=== PATIENT | male | born 1955 | race Caucasian/White ===

== ENCOUNTER → 2016-07-23 | Outpatient (CLI) | payer OTHER ==
[2014-08-24] VITALS: BP 137/73
[~2016-07-23] MED LIST: LISI10TA2 PO; METH-38 PO; MULT-208 PO; NAPR220C4 PO; TIZA4CAP3 PO; TRAM50TA PO; VITA1CAP PO; relafen
--- NOTE | 2016-07-23 08:41 | RAD ---
Abdominal ultrasound, 07/23/2016: History: Abdominal pain The gallbladder is within normal limits in size. There is no sonographic evidence of cholelithiasis. The gallbladder wall is not thickened. No bile duct dilatation is seen. There is no evidence of a hepatic mass. The visualized portions of the pancreas are unremarkable. The spleen is of normal size. No renal abnormality is detected. The abdominal aorta is of normal size. The inferior vena cava is unremarkable. No free fluid is evident in the abdomen. IMPRESSION: No significant abnormality is detected.
== END | disposition home or self-care (01) ==
LOC: US 07:45
PROVIDERS: ATTEND Family Medicine
DX: R10.9 Unspecified abdominal pain (principal)
CPT/HCPCS: 76700

== ENCOUNTER 2017-06-08 16:51 | Inpatient (IN) | payer OTHER ==
[~2017-06-08] VITALS: Ht 177.8 cm; Wt 64.4 kg
[2017-06-08] MEDS ORDERED: diazePAM 5 MG TABLET PO ONE (17:45)
[2017-06-08] MEDS ORDERED: MORPHINE SULFATE 10 MG/ML VIAL. IV ONE (17:45)
[2017-06-08] MEDS ORDERED: DEXAMETHASONE SOD PHOS 20 MG/5 ML VIAL. IV ONE (17:45)
[2017-06-08] MEDS ORDERED: KETOROLAC 30 MG/ML INJ. IV ONE (17:45)
[2017-06-08 17:48] LABS: BASO % 1 % (0-3); EOS % 1 % (0-3); HEMATOCRIT 41.4 % (39.0-53.0); LYMPH # 1.2 x10^3/uL (1.0-4.8); LYMPH % 14 % (24-48); MEAN CORPUSCULAR HEMOGLOBIN 34 pg (25-35); MEAN CORPUSCULAR HGB CONC 34 g/dL (31-37); MEAN CORPUSCULAR VOLUME 101 fL (79-100); MONO % 6 % (0-9); NEUT % 79 % (31-73); PLATELET COUNT 264 x10^3/uL (140-400); RED BLOOD COUNT 4.08 x10^6/uL (4.30-5.70); RED CELL DISTRIBUTION WIDTH 13.7 % (11.5-14.5); WHITE BLOOD COUNT 8.7 x10^3/uL (4.0-11.0)
[2017-06-08 18:00] LABS: CALCIUM 8.8 mg/dL (8.5-10.1); CREATININE 0.9 mg/dL (0.7-1.3); GFR 86.1; POTASSIUM 4.2 mmol/L (3.5-5.1)
[2017-06-08 18:03] LABS: PROTHROMBIN TIME PATIENT 12.8 SEC (11.7-14.0)
[2017-06-08] MEDS ORDERED: diazePAM 5 MG TABLET PO PRN (18:15)
[2017-06-08] MEDS ORDERED: ONDANSETRON PF 4 MG/2 ML VIAL. IV PRN (18:15)
--- NOTE | 2017-06-08 18:31 | PHYS DOC ---
Past Medical History Past Medical History: Hypertension, Other Additional Past Medical Histor: pseudoarthritis, chronic back pain Past Surgical History: Other Alcohol Use: None Drug Use: None Adult General Chief Complaint Chief Complaint: BACK PAIN OR INJURY HPI HPI Patient is a 61 year old female who presents with moderate left low back pain radiating into the left lower extremity that began today. Patient states the pain is constant worse on weight-bearing on the left lower extremity. Patient denies any loss of bowel bladder function. Denies any numbness or tingling to the left lower extremity. He states he is currently not able to ambulate because if he tries to bear weight on the left lower extremity the pain is excruciating. Patient denies weakness to bilateral lower extremities. He states his had similar back pain before and they did an epidural which cleared the pain. He also states he has had another episode of similar pain and he took Medrol Dosepak which helped. He states this is the first time he has not been able to bear weight on that left lower extremity due to pain. Review of Systems Review of Systems Constitutional: Denies fever or chills [] Eyes: Denies change in visual acuity, redness, or eye pain [] HENT: Denies nasal congestion or sore throat [] Respiratory: Denies cough or shortness of breath [] Cardiovascular: No additional information not addressed in HPI [] GI: Denies abdominal pain, nausea, vomiting, bloody stools or diarrhea [] : Denies dysuria or hematuria [] Musculoskeletal: Left low back pain radiating into the left lower extremity Integument: Denies rash or skin lesions [] Neurologic: Denies headache, focal weakness or sensory changes [] All other systems were reviewed and found to be within normal limits, except as documented in this note. Current Medications Current Medications Current Medications Medications (Trade) Dose Ordered Sig/Immanuel Start Time Stop Time Status Last Admin Dose Admin Dexamethasone Sodium Phosphate (Decadron) 10 mg 1X ONCE 06/08/17 17:45 06/08/17 17:46 DC 06/08/17 18:08 10 MG Diazepam (Valium) 5 mg 1X ONCE 06/08/17 17:45 06/08/17 17:46 DC 06/08/17 18:11 5 MG Ketorolac Tromethamine (Toradol) 30 mg 1X ONCE 06/08/17 17:45 06/08/17 17:46 DC 06/08/17 18:10 30 MG Morphine Sulfate 5 mg 1X ONCE 06/08/17 17:45 06/08/17 17:46 DC 06/08/17 18:11 5 MG Allergies Allergies Allergies Coded Allergies Type Severity Reaction Last Updated Verified No Known Drug Allergies 08/23/14 No Physical Exam Physical Exam Constitutional: Well developed, well nourished, no acute distress, non-toxic appearance. [] HENT: Normocephalic, atraumatic, bilateral external ears normal, oropharynx moist, no oral exudates, nose normal. [] Eyes: PERRLA, EOMI, conjunctiva normal, no discharge. [] Neck: Normal range of motion, no tenderness, supple, no stridor. [] Cardiovascular:Heart rate regular rhythm, no murmur [] Lungs & Thorax: Bilateral breath sounds clear to auscultation [] Abdomen: Bowel sounds normal, soft, no tenderness, no masses, no pulsatile masses. [] Skin: Warm, dry, no erythema, no rash. [] Back: Diffuse paraspinal muscle tenderness to the left lumbar spine worse on the left SI joint, no midline lumbar spine tenderness, no CVA tenderness. Positive left leg straight raises.5/5 strength bilateral upper and lower extremities. Rectal tone is normal. Extremities: No tenderness, no cyanosis, no clubbing, ROM intact, no edema. [] Neurologic: Alert and oriented X 3, normal motor function, normal sensory function, no focal deficits noted. [] Psychologic: Affect normal, judgement normal, mood normal. [] Current Patient Data Vital Signs Vital Signs Date Time Temp Pulse Resp B/P (MAP) Pulse Ox O2 Delivery O2 Flow Rate FiO2 06/08/17 17:05 98.0 55 20 97 Room Air 98.0 Lab Values Laboratory Tests Test 06/08/17 17:40 White Blood Count 8.7 x10^3/uL (4.0-11.0) Red Blood Count 4.08 x10^6/uL (4.30-5.70) L Hemoglobin 14.0 g/dL (13.0-17.5) Hematocrit 41.4 % (39.0-53.0) Mean Corpuscular Volume 101 fL (79-100) H Mean Corpuscular Hemoglobin 34 pg (25-35) Mean Corpuscular Hemoglobin Concent 34 g/dL (31-37) Red Cell Distribution Width 13.7 % (11.5-14.5) Platelet Count 264 x10^3/uL (140-400) Neutrophils (%) (Auto) 79 % (31-73) H Lymphocytes (%) (Auto) 14 % (24-48) L Monocytes (%) (Auto) 6 % (0-9) Eosinophils (%) (Auto) 1 % (0-3) Basophils (%) (Auto) 1 % (0-3) Neutrophils # (Auto) 6.9 x10^3uL (1.8-7.7) Lymphocytes # (Auto) 1.2 x10^3/uL (1.0-4.8) Monocytes # (Auto) 0.5 x10^3/uL (0.0-1.1) Eosinophils # (Auto) 0.1 x10^3/uL (0.0-0.7) Basophils # (Auto) 0.0 x10^3/uL (0.0-0.2) Prothrombin Time 12.8 SEC (11.7-14.0) Prothrombin Time INR 1.0 (0.8-1.1) PTT 26 SEC (24-38) Sodium Level 135 mmol/L (136-145) L Potassium Level 4.2 mmol/L (3.5-5.1) Chloride Level 98 mmol/L (98-107) Carbon Dioxide Level 29 mmol/L (21-32) Anion Gap 8 (6-14) Blood Urea Nitrogen 10 mg/dL (8-26) Creatinine 0.9 mg/dL (0.7-1.3) Estimated GFR (Cockcroft-Gault) 86.1 Glucose Level 96 mg/dL (70-99) Calcium Level 8.8 mg/dL (8.5-10.1) Laboratory Tests 06/08/17 17:40 Laboratory Tests 06/08/17 17:40 EKG EKG [] Radiology/Procedures Radiology/Procedures [] Course & Med Decision Making Course & Med Decision Making Pertinent Labs and Imaging studies reviewed. (See chart for details) Patient is in the ED with complaints of moderate left low back pain radiating to the left lower extremity. He currently is not able to bear weight on the left lower extremity due to the pain. Patient denies any injury. He does not have weakness to bilateral upper and lower extremities. His rectal tone is normal. He has been given Toradol and Decadron morphine and Valium. He feels better. He is turning in bed with no difficulties. The states there is no way she can take care of patient at home. Patient is requesting to be admitted. MRI ordered for AM 17:[address] Benedict who accepted patient for admission. Routine consult placed for neurosurgery. Dragon Disclaimer Dragon Disclaimer This electronic medical record was generated, in whole or in part, using a voice recognition dictation system. Departure Departure Impression: Primary Impression: Intractable low back pain Disposition: ADMITTED INPATIENT Admitting Physician: Luh Benedict Condition: STABLE Referrals: UNKNOWN PCP NAME (PCP) LYNN HUI APRN Jun 08, 2017 18:31
--- NOTE | 2017-06-08 18:40 | HP ---
ADMIT DATE: 06/08/2017 CHIEF COMPLAINT: Back pain. HISTORY OF PRESENT ILLNESS: The patient is a pleasant 61-year-old male who has a long history of back pain and lumbar radiculopathy. He has never had surgery yet, but he follows with a doctor who treated him for his chronic back pain. Today's pain rated as 10/10. He has associated spasms and weakness. I have discussed the case with the ER physician. We are going to admit the patient and consult Neurosurgery. PAST MEDICAL HISTORY: Arrhythmias, hypertension. ALLERGIES: None. FAMILY HISTORY: Diabetes. SOCIAL HISTORY: He does not drink, smoke or take drugs. He works at [employer]. He drives a forklift. He is . MEDICATIONS: Reviewed. REVIEW OF SYSTEMS: GENERAL: No history of weight change, weakness or fevers. SKIN: No bruising, hair changes or rashes. EYES: No blurred, double or loss of vision. NOSE AND THROAT: No history of nosebleeds, hoarseness or sore throat. HEART: No history of palpitations, chest pain or shortness of breath on exertion. LUNGS: Denies cough, hemoptysis, wheezing or shortness of breath. GASTROINTESTINAL: Denies changes in appetite, nausea, vomiting, diarrhea or constipation. GENITOURINARY: No history of frequency, urgency, hesitancy or nocturia. NEUROLOGIC: He complains of back pain. PSYCHIATRIC: No history of panic, anxiety or depression. ENDOCRINE: No history of heat or cold intolerance, polyuria or polydipsia. EXTREMITIES: Denies muscle weakness, joint pain, pain on walking or stiffness. PHYSICAL EXAMINATION: VITAL SIGNS: Temperature afebrile, pulse 74, respirations 18, blood pressure 144/60. GENERAL: He is alert, cooperative. His is present. HEART: Normal S1, S2. LUNGS: Clear. GASTROINTESTINAL: Soft. EXTREMITIES: No edema. SKIN: No rashes. ENDOCRINE: No thyromegaly. LYMPHATICS: No cervical nodes. HEMATOPOIETIC: No bruising. ASSESSMENT AND PLAN: Acute on chronic radicular back pain with intractable pain. The patient has been admitted. We will consult Neurosurgery. IV fluids, IV narcotics. Continue home medicines, PT, OT. Suspect will need an MRI or myelogram. We will await neurosurgical input. TERRANCE GTZ DO DR: Xiomara JOB#: [id number] / [id number]
[2017-06-08 19:00] VITALS: BP 125/66
[2017-06-08] MEDS ORDERED: DEXAMETHASONE SOD PHOS 20 MG/5 ML VIAL. IV SCH (21:00)
[2017-06-08] MEDS ORDERED: METO25TA4 PO (21:45)
[2017-06-08] MEDS ORDERED: LISI-334 PO (21:45)
[2017-06-08] MEDS ORDERED: FLEC100T PO (21:45)
[2017-06-08] MEDS ORDERED: DEXAMETHASONE SOD PHOS 4 MG/ML VIAL IV SCH (21:56)
[2017-06-08] MEDS: MORPHINE SULFATE 4 MG/ML DISP.SYRIN. IV PRN (22:06)
[2017-06-08] MEDS: DEXAMETHASONE SOD PHOS 4 MG/ML VIAL IV SCH (22:06)
[2017-06-08 23:00] VITALS: BP 124/65
[2017-06-09 02:38] VITALS: BP 135/77
[2017-06-09] MEDS: MORPHINE SULFATE 4 MG/ML DISP.SYRIN. IV PRN (03:21)
[2017-06-09 03:43] LABS: BASO % 0 % (0-3); EOS % 0 % (0-3); HEMATOCRIT 41.7 % (39.0-53.0); LYMPH # 0.4 x10^3/uL (1.0-4.8); LYMPH % 6 % (24-48); MEAN CORPUSCULAR HEMOGLOBIN 34 pg (25-35); MEAN CORPUSCULAR HGB CONC 34 g/dL (31-37); MEAN CORPUSCULAR VOLUME 103 fL (79-100); MONO % 1 % (0-9); NEUT % 93 % (31-73); PLATELET COUNT 254 x10^3/uL (140-400); RED BLOOD COUNT 4.07 x10^6/uL (4.30-5.70); RED CELL DISTRIBUTION WIDTH 13.6 % (11.5-14.5)
[2017-06-09 04:09] LABS: CALCIUM 8.8 mg/dL (8.5-10.1); CREATININE 0.9 mg/dL (0.7-1.3); GFR 86.1; POTASSIUM 5.1 mmol/L (3.5-5.1)
[2017-06-09 07:00] VITALS: BP 136/68
[2017-06-09 07:38] LABS: PLT ESTIMATE ADEQUATE (ADEQUATE)
--- NOTE | 2017-06-09 08:14 | RAD ---
Lumbar spine, 3 views, 06/08/2017: History: Pain The lumbar vertebral heights are well-maintained. There is a mild lumbar scoliosis. There is moderate disc space narrowing and marginal spurring at L4-5. There are additional moderate marginal spurs at other levels. There are moderate degenerative changes involving the facet joints bilaterally in the lower lumbar spine. No fracture or dislocation is evident. Aortoiliac calcific plaquing is present. IMPRESSION: 1. Moderate multilevel degenerative change. 2. No acute bony abnormality is detected.
[2017-06-09] MEDS ORDERED: FLU VACC QS2017-18 (36MOS+)/PF 0.5 ML SYRINGE. VAX IM ONE (09:00)
[2017-06-09 11:03] VITALS: BP 119/75
--- NOTE | 2017-06-09 12:06 | RAD ---
MRI Lumbar Spine without contrast History: Low back pain, left hip and leg pain Technique: Multiplanar, multi sequential noncontrast MR imaging was performed of the lumbar spine. Contrast: None Comparison: September 08, 2014 Findings: Lumbar vertebral body stature and AP alignment are similar. Conus terminates at the mid aspect of L2. There is fairly advanced degenerative disc disease at L4-5 as seen previously, to lesser degree L3-4 and L2-3. There is again endplate edema at L4-5 and to lesser degree at L3-4 and L2-3 probably reactive/degenerative in etiology. There is again mild S-shaped scoliosis. L1-L2: There is again shallow posterior protrusion greatest in the left paracentral region. Spinal canal and neural foramina are adequate. L2-L3: There is disc osteophyte complex and bulge, also now extrusion extending below the intervertebral disc space in left lateral recess on the order of 0.6 cm CC by 0.4 cm AP by approximately 0.7 cm transverse. There is a greater degree of moderate left lateral recess stenosis and contact descending left L3 nerve root. There is also somewhat greater degree of [id number] narrowing of the far right lateral recess. There is mild facet degenerative change and buckling of the ligamentum flavum. Neural foramina are adequate. L3-L4: There is again posterior bulge. There is again extrusion extending into the inferior left neural foramen with contact exiting left L3 nerve root, extrusion estimated at 0.6 cm CC by 0.4 cm AP by approximately 0.8 cm transverse not convincingly changed. There is moderate narrowing of the inferior left neural foramen. There is also moderate narrowing of the right neural foramen primarily from posteriorly by facet hypertrophic change. There is again [id number] right and mild left lateral recess stenosis. L4-L5: There is mild buckling of the ligamentum flavum and facet degenerative change. There is again minimal disc osteophyte complex. There is overall mild right lateral recess stenosis as seen previously. Left neural foramen is adequate. There is again fairly severe narrowing of the right neural foramen by disc osteophyte complex and facet degenerative change with effacement of perineural fat surrounding the exiting right L4 nerve root. L5-S1: Neural foramina and spinal canal are adequate. There is right facet hypertrophic change. Impression: 1. Compared with the 2014 exam, there is now extrusion extending below the L2-3 intervertebral disc space in the left lateral recess with increased left lateral recess stenosis and contact descending left L3 nerve root. There is also somewhat greater degree of [id number] right lateral recess stenosis L2-3. There is other lateral recess stenosis as stated which is similar. 2. There is neural foramina compromise as stated greatest on the right at L4-5 and to lesser degree bilaterally at L3-4. 3. There is again multilevel lumbar degenerative disc disease greatest at L4-5 and to lesser degree L3-4 and L2-3, persistent endplate edema at these levels probably reactive/degenerative in etiology. Electronically signed by: Tucker Reese MD (06/09/2017 12:03 PM) [id number]
--- NOTE | 2017-06-09 13:04 | PDOC ---
Provider Note Provider Note patient seen and examined. new increased disc bulging at L2-3 on the left with lateral recess narrowing with moderately severe degenerative scoliosis he is not a good candidate for surgery recommended LESI he would like to try Medrol dose pack and dc to see his pain doctor that he follows with full consult to follow KLAUS SOLOMON MD Jun 09, 2017 13:04
[2017-06-09] MEDS: DEXAMETHASONE SOD PHOS 4 MG/ML VIAL IV SCH (13:10)
[2017-06-09 14:51] VITALS: BP 123/68
[2017-06-09] MEDS ORDERED: KETOROLAC 15 MG/ML VIAL. IV PRN (15:00)
--- NOTE | 2017-06-09 15:00 | PDOC ---
PROGRESS NOTES Chief Complaint Chief Complaint Acute on chronic radicular back pain intractable pain. increased disc bulging at L2-3 on the left with lateral recess narrowing moderately severe degenerative scoliosis History of Present Illness History of Present Illness back pain better while lying down, 10 pain with standing Vitals Vitals Vital Signs Date Time Temp Pulse Resp B/P (MAP) Pulse Ox O2 Delivery O2 Flow Rate FiO2 06/09/17 14:51 97.9 66 18 123/68 (86) 93 Room Air 97.9 Physical Exam General: Alert Heart: Normal S1 Lungs: Clear, Wheezing Abdomen: Normal bowel sounds Extremities: No cyanosis, No edema Skin: No rashes, No breakdown Labs LABS Laboratory Tests Test 06/08/17 17:40 06/09/17 03:15 White Blood Count 8.7 x10^3/uL (4.0-11.0) 6.0 x10^3/uL (4.0-11.0) Red Blood Count 4.08 x10^6/uL (4.30-5.70) 4.07 x10^6/uL (4.30-5.70) Hemoglobin 14.0 g/dL (13.0-17.5) 14.0 g/dL (13.0-17.5) Hematocrit 41.4 % (39.0-53.0) 41.7 % (39.0-53.0) Mean Corpuscular Volume 101 fL (79-100) 103 fL (79-100) Mean Corpuscular Hemoglobin 34 pg (25-35) 34 pg (25-35) Mean Corpuscular Hemoglobin Concent 34 g/dL (31-37) 34 g/dL (31-37) Red Cell Distribution Width 13.7 % (11.5-14.5) 13.6 % (11.5-14.5) Platelet Count 264 x10^3/uL (140-400) 254 x10^3/uL (140-400) Neutrophils (%) (Auto) 79 % (31-73) 93 % (31-73) Lymphocytes (%) (Auto) 14 % (24-48) 6 % (24-48) Monocytes (%) (Auto) 6 % (0-9) 1 % (0-9) Eosinophils (%) (Auto) 1 % (0-3) 0 % (0-3) Basophils (%) (Auto) 1 % (0-3) 0 % (0-3) Neutrophils # (Auto) 6.9 x10^3uL (1.8-7.7) 5.6 x10^3uL (1.8-7.7) Lymphocytes # (Auto) 1.2 x10^3/uL (1.0-4.8) 0.4 x10^3/uL (1.0-4.8) Monocytes # (Auto) 0.5 x10^3/uL (0.0-1.1) 0.0 x10^3/uL (0.0-1.1) Eosinophils # (Auto) 0.1 x10^3/uL (0.0-0.7) 0.0 x10^3/uL (0.0-0.7) Basophils # (Auto) 0.0 x10^3/uL (0.0-0.2) 0.0 x10^3/uL (0.0-0.2) Prothrombin Time 12.8 SEC (11.7-14.0) Prothromb Time International Ratio 1.0 (0.8-1.1) Activated Partial Thromboplast Time 26 SEC (24-38) Sodium Level 135 mmol/L (136-145) 135 mmol/L (136-145) Potassium Level 4.2 mmol/L (3.5-5.1) 5.1 mmol/L (3.5-5.1) Chloride Level 98 mmol/L (98-107) 100 mmol/L (98-107) Carbon Dioxide Level 29 mmol/L (21-32) 28 mmol/L (21-32) Anion Gap 8 (6-14) 7 (6-14) Blood Urea Nitrogen 10 mg/dL (8-26) 14 mg/dL (8-26) Creatinine 0.9 mg/dL (0.7-1.3) 0.9 mg/dL (0.7-1.3) Estimated GFR (Cockcroft-Gault) 86.1 86.1 Glucose Level 96 mg/dL (70-99) 146 mg/dL (70-99) Calcium Level 8.8 mg/dL (8.5-10.1) 8.8 mg/dL (8.5-10.1) Segmented Neutrophils % 93 % (35-66) Lymphocytes % 7 % (24-48) Platelet Estimate Adequate (ADEQUATE) Review of Systems Review of Systems back pain no n,,v Assessment and Plan Assessmemt and Plan per NS: he is not a good candidate for surgery recommended TIMI Problems: Comment Review of Relevant I have reviewed the following items geoffrey (where applicable) has been applied. Labs Laboratory Tests Test 06/08/17 17:40 06/09/17 03:15 White Blood Count 8.7 x10^3/uL (4.0-11.0) 6.0 x10^3/uL (4.0-11.0) Red Blood Count 4.08 x10^6/uL (4.30-5.70) 4.07 x10^6/uL (4.30-5.70) Hemoglobin 14.0 g/dL (13.0-17.5) 14.0 g/dL (13.0-17.5) Hematocrit 41.4 % (39.0-53.0) 41.7 % (39.0-53.0) Mean Corpuscular Volume 101 fL (79-100) 103 fL (79-100) Mean Corpuscular Hemoglobin 34 pg (25-35) 34 pg (25-35) Mean Corpuscular Hemoglobin Concent 34 g/dL (31-37) 34 g/dL (31-37) Red Cell Distribution Width 13.7 % (11.5-14.5) 13.6 % (11.5-14.5) Platelet Count 264 x10^3/uL (140-400) 254 x10^3/uL (140-400) Neutrophils (%) (Auto) 79 % (31-73) 93 % (31-73) Lymphocytes (%) (Auto) 14 % (24-48) 6 % (24-48) Monocytes (%) (Auto) 6 % (0-9) 1 % (0-9) Eosinophils (%) (Auto) 1 % (0-3) 0 % (0-3) Basophils (%) (Auto) 1 % (0-3) 0 % (0-3) Neutrophils # (Auto) 6.9 x10^3uL (1.8-7.7) 5.6 x10^3uL (1.8-7.7) Lymphocytes # (Auto) 1.2 x10^3/uL (1.0-4.8) 0.4 x10^3/uL (1.0-4.8) Monocytes # (Auto) 0.5 x10^3/uL (0.0-1.1) 0.0 x10^3/uL (0.0-1.1) Eosinophils # (Auto) 0.1 x10^3/uL (0.0-0.7) 0.0 x10^3/uL (0.0-0.7) Basophils # (Auto) 0.0 x10^3/uL (0.0-0.2) 0.0 x10^3/uL (0.0-0.2) Prothrombin Time 12.8 SEC (11.7-14.0) Prothromb Time International Ratio 1.0 (0.8-1.1) Activated Partial Thromboplast Time 26 SEC (24-38) Sodium Level 135 mmol/L (136-145) 135 mmol/L (136-145) Potassium Level 4.2 mmol/L (3.5-5.1) 5.1 mmol/L (3.5-5.1) Chloride Level 98 mmol/L (98-107) 100 mmol/L (98-107) Carbon Dioxide Level 29 mmol/L (21-32) 28 mmol/L (21-32) Anion Gap 8 (6-14) 7 (6-14) Blood Urea Nitrogen 10 mg/dL (8-26) 14 mg/dL (8-26) Creatinine 0.9 mg/dL (0.7-1.3) 0.9 mg/dL (0.7-1.3) Estimated GFR (Cockcroft-Gault) 86.1 86.1 Glucose Level 96 mg/dL (70-99) 146 mg/dL (70-99) Calcium Level 8.8 mg/dL (8.5-10.1) 8.8 mg/dL (8.5-10.1) Segmented Neutrophils % 93 % (35-66) Lymphocytes % 7 % (24-48) Platelet Estimate Adequate (ADEQUATE) Laboratory Tests Test 06/08/17 17:40 06/09/17 03:15 White Blood Count 8.7 x10^3/uL (4.0-11.0) 6.0 x10^3/uL (4.0-11.0) Red Blood Count 4.08 x10^6/uL (4.30-5.70) 4.07 x10^6/uL (4.30-5.70) Hemoglobin 14.0 g/dL (13.0-17.5) 14.0 g/dL (13.0-17.5) Hematocrit 41.4 % (39.0-53.0) 41.7 % (39.0-53.0) Mean Corpuscular Volume 101 fL (79-100) 103 fL (79-100) Mean Corpuscular Hemoglobin 34 pg (25-35) 34 pg (25-35) Mean Corpuscular Hemoglobin Concent 34 g/dL (31-37) 34 g/dL (31-37) Red Cell Distribution Width 13.7 % (11.5-14.5) 13.6 % (11.5-14.5) Platelet Count 264 x10^3/uL (140-400) 254 x10^3/uL (140-400) Neutrophils (%) (Auto) 79 % (31-73) 93 % (31-73) Lymphocytes (%) (Auto) 14 % (24-48) 6 % (24-48) Monocytes (%) (Auto) 6 % (0-9) 1 % (0-9) Eosinophils (%) (Auto) 1 % (0-3) 0 % (0-3) Basophils (%) (Auto) 1 % (0-3) 0 % (0-3) Neutrophils # (Auto) 6.9 x10^3uL (1.8-7.7) 5.6 x10^3uL (1.8-7.7) Lymphocytes # (Auto) 1.2 x10^3/uL (1.0-4.8) 0.4 x10^3/uL (1.0-4.8) Monocytes # (Auto) 0.5 x10^3/uL (0.0-1.1) 0.0 x10^3/uL (0.0-1.1) Eosinophils # (Auto) 0.1 x10^3/uL (0.0-0.7) 0.0 x10^3/uL (0.0-0.7) Basophils # (Auto) 0.0 x10^3/uL (0.0-0.2) 0.0 x10^3/uL (0.0-0.2) Prothrombin Time 12.8 SEC (11.7-14.0) Prothromb Time International Ratio 1.0 (0.8-1.1) Activated Partial Thromboplast Time 26 SEC (24-38) Sodium Level 135 mmol/L (136-145) 135 mmol/L (136-145) Potassium Level 4.2 mmol/L (3.5-5.1) 5.1 mmol/L (3.5-5.1) Chloride Level 98 mmol/L (98-107) 100 mmol/L (98-107) Carbon Dioxide Level 29 mmol/L (21-32) 28 mmol/L (21-32) Anion Gap 8 (6-14) 7 (6-14) Blood Urea Nitrogen 10 mg/dL (8-26) 14 mg/dL (8-26) Creatinine 0.9 mg/dL (0.7-1.3) 0.9 mg/dL (0.7-1.3) Estimated GFR (Cockcroft-Gault) 86.1 86.1 Glucose Level 96 mg/dL (70-99) 146 mg/dL (70-99) Calcium Level 8.8 mg/dL (8.5-10.1) 8.8 mg/dL (8.5-10.1) Segmented Neutrophils % 93 % (35-66) Lymphocytes % 7 % (24-48) Platelet Estimate Adequate (ADEQUATE) Medications Current Medications Ketorolac Tromethamine (Toradol) 30 mg 1X ONCE IV Last administered on 18:10; Start 06/08/17 at 17:45; Stop 06/08/17 at 17:46; Status DC Dexamethasone Sodium Phosphate (Decadron) 10 mg 1X ONCE IV Last administered on 06/08/17 18:08; Start 06/08/17 at 17:45; Stop 06/08/17 at 17:46; Status DC Morphine Sulfate 5 mg 1X ONCE IV Last administered on 06/08/17 18:11; Start 06/08/17 at 17:45; Stop 06/08/17 at 17:46; Status DC Diazepam (Valium) 5 mg 1X ONCE PO Last administered on 06/08/17 18:11; Start 06/08/17 at 17:45; Stop 06/08/17 at 17:46; Status DC Ondansetron HCl (Zofran) 4 mg PRN Q8HRS PRN IV NAUSEA/VOMITING; Start at 18:15; Stop 06/09/17 at 18:14 Morphine Sulfate 4 mg PRN Q2HR PRN IV PAIN Last administered on 06/09/17 03: 21; Start 06/08/17 at 18:15; Stop 06/09/17 at 18:14 Diazepam (Valium) 5 mg PRN TID PRN PO spasms; Start 06/08/17 at 18:15 Dexamethasone Sodium Phosphate (Decadron) 10 mg BID IV ; Start 06/08/17 at 21: 00; Stop 06/08/17 at 21:56; Status DC Influenza Virus Vaccine Quadrival (Fluarix Quad [id number] Syringe) 0.5 ml ONCE ONCE VAX IM Last administered on 06/09/17 13:13; Start 06/09/17 at 09:00; Stop 06/09/17 at 09:01; Status DC Dexamethasone Sodium Phosphate (Decadron) 10 mg BID IV ; Start 06/08/17 at 21: 56; Status Cancel Dexamethasone Sodium Phosphate (Decadron) 10 mg BID IV Last administered on 13:10; Start 06/08/17 at 22:00 Lorazepam (Ativan) 1 mg 1X ONCE IV Last administered on 06/09/17 09:07; Start 06/09/17 at 09:00; Stop 06/09/17 at 09:01; Status DC Lorazepam (Ativan) 1 mg 1X ONCE IV ; Start 06/09/17 at 10:00; Stop 06/09/17 at 10:01; Status DC Active Scripts Active Reported Flecainide Acetate 100 Mg Tablet 1 Tab PO BID Metoprolol Tartrate 25 Mg Tablet 1 Tab PO BID Lisinopril 20 Mg Tablet 1 Tab PO DAILY Vitals/I & O Vital Sign - Last 24 Hours 06/08/17 06/08/17 06/08/17 06/08/17 17:05 18:11 19:00 21:25 Temp 98.0 97.5 98.0 97.5 Pulse 55 59 Resp 20 19 B/P (MAP) 125/66 (85) Pulse Ox 97 94 O2 Delivery Room Air Room Air Room Air Room Air 06/08/17 06/08/17 06/09/17 06/09/17 22:06 23:00 02:38 03:21 Temp 97.7 97.0 97.7 97.0 Pulse 64 57 Resp 16 16 B/P (MAP) 124/65 (84) 135/77 (96) Pulse Ox 94 96 97 97 O2 Delivery Room Air Room Air Room Air Room Air 06/09/17 06/09/17 06/09/17 06/09/17 07:00 08:00 11:03 14:51 Temp 97.9 97.9 97.9 97.9 97.9 97.9 Pulse 54 69 66 Resp 18 18 18 B/P (MAP) 136/68 (90) 119/75 (90) 123/68 (86) Pulse Ox 95 95 93 O2 Delivery Room Air Room Air Room Air Room Air Intake and Output 06/08/17 06/08/17 06/09/17 15:00 23:00 07:00 Output Total 0 ml Balance 0 ml HE YA MD Jun 09, 2017 15:00
[2017-06-09] MEDS: POLYETHYLENE GLYCOL 3350 17 GM PACKET. PO SCH (18:21)
[2017-06-09] MEDS: DOCUSATE SODIUM 100 MG CAPSULE. PO SCH (18:21)
[2017-06-09] MEDS: oxyCODONE/APAP 5/325 1 TAB TABLET PO PRN ×2 (18:27→23:32)
[2017-06-09 19:00] VITALS: BP 131/75
[2017-06-09] MEDS ORDERED: METOPROLOL TART IMMED RELEASE 25 MG TABLET. PO SCH (21:00)
[2017-06-09] MEDS ORDERED: FLECAINIDE ACETATE 50 MG TABLET. PO SCH (21:00)
[2017-06-09] MEDS: methylPREDNISolone 4 MG TABLET. PO SCH (21:28)
[2017-06-09 23:00] VITALS: BP 133/75
[2017-06-09] MEDS: METOPROLOL TART IMMED RELEASE 25 MG TABLET. PO SCH (23:32)
[2017-06-09] MEDS: FLECAINIDE ACETATE 50 MG TABLET. PO SCH (23:32)
[2017-06-10 03:00] VITALS: BP 105/53
[2017-06-10 07:00] VITALS: BP 108/57
[2017-06-10] MEDS: DOCUSATE SODIUM 100 MG CAPSULE. PO SCH (08:50)
[2017-06-10] MEDS: methylPREDNISolone 4 MG TABLET. PO SCH ×2 (08:50→20:08)
[2017-06-10] MEDS: POLYETHYLENE GLYCOL 3350 17 GM PACKET. PO SCH (08:51)
[2017-06-10] MEDS: oxyCODONE/APAP 5/325 1 TAB TABLET PO PRN ×3 (08:51→20:08)
[2017-06-10 10:45] VITALS: BP 119/56
[2017-06-10] MEDS: METOPROLOL TART IMMED RELEASE 25 MG TABLET. PO SCH (12:00)
[2017-06-10] MEDS: FLECAINIDE ACETATE 50 MG TABLET. PO SCH (12:05)
[2017-06-10 14:44] VITALS: BP 121/60
--- NOTE | 2017-06-10 17:57 | PDOC ---
PROGRESS NOTES Chief Complaint Chief Complaint Acute on chronic radicular back pain intractable pain. increased disc bulging at L2-3 on the left with lateral recess narrowing moderately severe degenerative scoliosis History of Present Illness History of Present Illness back pain better while lying down, 10 pain with standingChief Complaint Chief Complaint Acute on chronic radicular back pain intractable pain. increased disc bulging at L2-3 on the left with lateral recess narrowing moderately severe degenerative scoliosis History of Present Illness History of Present Illness back pain better while lying down, 10 pain with standing Vitals Vitals Vital Signs Date Time Temp Pulse Resp B/P (MAP) Pulse Ox O2 Delivery O2 Flow Rate FiO2 06/09/17 14:51 97.9 66 18 123/68 (86) 93 Room Air 97.9 Physical Exam General: Alert Heart: Normal S1 Lungs: Clear, Wheezing Abdomen: Normal bowel sounds Extremities: No cyanosis, No edema Skin: No rashes, No breakdown Labs Vitals Vitals Vital Signs Date Time Temp Pulse Resp B/P (MAP) Pulse Ox O2 Delivery O2 Flow Rate FiO2 06/10/17 16:11 18 Room Air 06/10/17 14:44 97.8 68 121/60 (80) 94 97.8 Physical Exam Physical Exam General: Alert Heart: Normal S1 Lungs: Clear, Wheezing Abdomen: Normal bowel sounds Extremities: No cyanosis, No edema Skin: No rashes, No breakdown REFLEXES PATELLAR Labs General: Alert Heart: Normal S1 Lungs: Clear, Wheezing Abdomen: Normal bowel sounds Extremities: No cyanosis, No edema Skin: No rashes, No breakdown Labs LABS PROCEDURE: LUMBAR SPINE WO CONTRAST MRI Lumbar Spine without contrast History: Low back pain, left hip and leg pain Technique: Multiplanar, multi sequential noncontrast MR imaging was performed of the lumbar spine. Contrast: None Comparison: September 08, 2014 Findings: Lumbar vertebral body stature and AP alignment are similar. Conus terminates at the mid aspect of L2. There is fairly advanced degenerative disc disease at L4-5 as seen previously, to lesser degree L3-4 and L2-3. There is again endplate edema at L4-5 and to lesser degree at L3-4 and L2-3 probably reactive/degenerative in etiology. There is again mild S-shaped scoliosis. L1-L2: There is again shallow posterior protrusion greatest in the left paracentral region. Spinal canal and neural foramina are adequate. L2-L3: There is disc osteophyte complex and bulge, also now extrusion extending below the intervertebral disc space in left lateral recess on the order of 0.6 cm CC by 0.4 cm AP by approximately 0.7 cm transverse. There is a greater degree of moderate left lateral recess stenosis and contact descending left L3 nerve root. There is also somewhat greater degree of [id number] narrowing of the far right lateral recess. There is mild facet degenerative change and buckling of the ligamentum flavum. Neural foramina are adequate. L3-L4: There is again posterior bulge. There is again extrusion extending into the inferior left neural foramen with contact exiting left L3 nerve root, extrusion estimated at 0.6 cm CC by 0.4 cm AP by approximately 0.8 cm transverse not convincingly changed. There is moderate narrowing of the inferior left neural foramen. There is also moderate narrowing of the right neural foramen primarily from posteriorly by facet hypertrophic change. There is again [id number] right and mild left lateral recess stenosis. L4-L5: There is mild buckling of the ligamentum flavum and facet degenerative change. There is again minimal disc osteophyte complex. There is overall mild right lateral recess stenosis as seen previously. Left neural foramen is adequate. There is again fairly severe narrowing of the right neural foramen by disc osteophyte complex and facet degenerative change with effacement of perineural fat surrounding the exiting right L4 nerve root. L5-S1: Neural foramina and spinal canal are adequate. There is right facet hypertrophic change. Impression: 1. Compared with the 2015 exam, there is now extrusion extending below the L2-3 intervertebral disc space in the left lateral recess with increased left lateral recess stenosis and contact descending left L3 nerve root. There is also somewhat greater degree of [id number] right lateral recess stenosis L2-3. There is other lateral recess stenosis as stated which is similar. 2. There is neural foramina compromise as stated greatest on the right at L4-5 and to lesser degree bilaterally at L3-4. 3. There is again multilevel lumbar degenerative disc disease greatest at L4-5 and to lesser degree L3-4 and L2-3, persistent endplate edema at these levels probably reactive/degenerative in etiology. Electronically signed by: Ernesto Reid MD (06/09/2017 12:03 PM) [facility] DICTATED and SIGNED BY: ERNESTO REID MD Assessment and Plan Assessmemt and Plan Review of Systems back pain, intractable PAIN WAS BETTER UNTIL 2 HRS AGO, THEN BECAME UNBEARABLE no n,,v Assessmemt and Plan disc extrusion L2L3 per NS: he is not a good candidate for surgery recommended TIMI Problems: r try Medrol dose pack and dc to see his pain doctor that he follows Problems: Comment Review of Relevant I have reviewed the following items geoffrey (where applicable) has been applied. Labs Laboratory Tests Test 06/09/17 03:15 White Blood Count 6.0 x10^3/uL (4.0-11.0) Red Blood Count 4.07 x10^6/uL (4.30-5.70) Hemoglobin 14.0 g/dL (13.0-17.5) Hematocrit 41.7 % (39.0-53.0) Mean Corpuscular Volume 103 fL (79-100) Mean Corpuscular Hemoglobin 34 pg (25-35) Mean Corpuscular Hemoglobin Concent 34 g/dL (31-37) Red Cell Distribution Width 13.6 % (11.5-14.5) Platelet Count 254 x10^3/uL (140-400) Neutrophils (%) (Auto) 93 % (31-73) Lymphocytes (%) (Auto) 6 % (24-48) Monocytes (%) (Auto) 1 % (0-9) Eosinophils (%) (Auto) 0 % (0-3) Basophils (%) (Auto) 0 % (0-3) Neutrophils # (Auto) 5.6 x10^3uL (1.8-7.7) Lymphocytes # (Auto) 0.4 x10^3/uL (1.0-4.8) Monocytes # (Auto) 0.0 x10^3/uL (0.0-1.1) Eosinophils # (Auto) 0.0 x10^3/uL (0.0-0.7) Basophils # (Auto) 0.0 x10^3/uL (0.0-0.2) Segmented Neutrophils % 93 % (35-66) Lymphocytes % 7 % (24-48) Platelet Estimate Adequate (ADEQUATE) Sodium Level 135 mmol/L (136-145) Potassium Level 5.1 mmol/L (3.5-5.1) Chloride Level 100 mmol/L (98-107) Carbon Dioxide Level 28 mmol/L (21-32) Anion Gap 7 (6-14) Blood Urea Nitrogen 14 mg/dL (8-26) Creatinine 0.9 mg/dL (0.7-1.3) Estimated GFR (Cockcroft-Gault) 86.1 Glucose Level 146 mg/dL (70-99) Calcium Level 8.8 mg/dL (8.5-10.1) Medications Current Medications Ketorolac Tromethamine (Toradol) 30 mg 1X ONCE IV Last administered on 18:10; Start 06/08/17 at 17:45; Stop 06/08/17 at 17:46; Status DC Dexamethasone Sodium Phosphate (Decadron) 10 mg 1X ONCE IV Last administered on 06/08/17 18:08; Start 06/08/17 at 17:45; Stop 06/08/17 at 17:46; Status DC Morphine Sulfate 5 mg 1X ONCE IV Last administered on 06/08/17 18:11; Start 06/08/17 at 17:45; Stop 06/08/17 at 17:46; Status DC Diazepam (Valium) 5 mg 1X ONCE PO Last administered on 06/08/17 18:11; Start 06/08/17 at 17:45; Stop 06/08/17 at 17:46; Status DC Ondansetron HCl (Zofran) 4 mg PRN Q8HRS PRN IV NAUSEA/VOMITING; Start at 18:15; Stop 06/09/17 at 18:14; Status DC Morphine Sulfate 4 mg PRN Q2HR PRN IV PAIN Last administered on 06/09/17 03: 21; Start 06/08/17 at 18:15; Stop 06/09/17 at 18:14; Status DC Diazepam (Valium) 5 mg PRN TID PRN PO spasms; Start 06/08/17 at 18:15 Dexamethasone Sodium Phosphate (Decadron) 10 mg BID IV ; Start 06/08/17 at 21: 00; Stop 06/08/17 at 21:56; Status DC Influenza Virus Vaccine Quadrival (Fluarix Quad 1804-8239 Syringe) 0.5 ml ONCE ONCE VAX IM Last administered on 06/09/17 13:13; Start 06/09/17 at 09:00; Stop 06/09/17 at 09:01; Status DC Dexamethasone Sodium Phosphate (Decadron) 10 mg BID IV ; Start 06/08/17 at 21: 56; Status Cancel Dexamethasone Sodium Phosphate (Decadron) 10 mg BID IV Last administered on 13:10; Start 06/08/17 at 22:00; Stop 06/09/17 at 14:58; Status DC Lorazepam (Ativan) 1 mg 1X ONCE IV Last administered on 06/09/17 09:07; Start 06/09/17 at 09:00; Stop 06/09/17 at 09:01; Status DC Lorazepam (Ativan) 1 mg 1X ONCE IV ; Start 06/09/17 at 10:00; Stop 06/09/17 at 10:01; Status DC Methylprednisolone (Medrol) 4 mg BID PO Last administered on 06/10/17 08:50; Start 06/09/17 at 21:00 Oxycodone/ Acetaminophen (Percocet 5/325) 1 tab PRN Q4HRS PRN PO PAIN Last administered on 06/10/17 15:11; Start 06/09/17 at 15:00 Ketorolac Tromethamine (Toradol) 15 mg PRN Q6HRS PRN IV PAIN; Start 06/09/17 at 15:00; Stop 06/14/17 at 14:59 Polyethylene Glycol (miraLAX PACKET) 17 gm DAILY PO Last administered on 18:21; Start 06/09/17 at 15:30 Docusate Sodium (Colace) 100 mg DAILY PO Last administered on 06/10/17 08:50 ; Start 06/09/17 at 15:30 Metoprolol Tartrate (Lopressor) 25 mg BID PO ; Start 06/09/17 at 21:00; Stop 06/09/17 at 21:00; Status DC Flecainide Acetate (Tambocor) 100 mg Q12HR PO ; Start 06/09/17 at 21:00; Stop 06/09/17 at 21:00; Status DC Metoprolol Tartrate (Lopressor) 25 mg BID@0000,1200 PO Last administered on 23:32; Start 06/10/17 at 00:00 Flecainide Acetate (Tambocor) 100 mg BID@0000,1200 PO Last administered on t 12:05; Start 06/10/17 at 00:00 Active Scripts Active Reported Flecainide Acetate 100 Mg Tablet 1 Tab PO BID Metoprolol Tartrate 25 Mg Tablet 1 Tab PO BID Lisinopril 20 Mg Tablet 1 Tab PO DAILY Vitals/I & O Vital Sign - Last 24 Hours 06/09/17 06/09/17 06/09/17 06/09/17 18:27 19:00 19:27 20:00 Temp 97.9 97.9 Pulse 69 Resp 18 17 B/P (MAP) 131/75 (93) Pulse Ox 94 94 O2 Delivery Room Air Room Air Room Air 06/09/17 06/09/17 06/09/17 06/09/17 23:00 23:32 23:32 23:32 Temp 97.8 97.8 Pulse 66 66 66 Resp 18 B/P (MAP) 133/75 (94) 133/75 133/75 Pulse Ox 94 94 O2 Delivery Room Air Room Air 06/10/17 06/10/17 06/10/17 06/10/17 03:00 07:00 08:00 08:51 Temp 98.0 97.8 98.0 97.8 Pulse 59 58 Resp 16 18 18 B/P (MAP) 105/53 (70) 108/57 (74) Pulse Ox 94 96 O2 Delivery Room Air Room Air Room Air Room Air 06/10/17 06/10/17 06/10/17 06/10/17 10:45 12:00 12:05 14:44 Temp 97.8 97.8 97.8 97.8 Pulse 53 60 53 68 Resp 18 18 B/P (MAP) 119/56 (77) 119/56 119/56 121/60 (80) Pulse Ox 95 94 O2 Delivery Room Air Room Air 06/10/17 06/10/17 15:11 16:11 Resp 18 18 O2 Delivery Room Air Intake and Output 06/09/17 06/09/17 06/10/17 15:00 23:00 07:00 Intake Total 300 ml Output Total 250 ml 1 ml Balance 50 ml -1 ml ROBERTO CORNELL MD Jun 10, 2017 17:57
[2017-06-10 19:00] VITALS: BP 118/68
[2017-06-10 23:30] VITALS: BP 125/75
[2017-06-11] MEDS: FLECAINIDE ACETATE 50 MG TABLET. PO SCH ×2 (00:14→11:49)
[2017-06-11] MEDS: oxyCODONE/APAP 5/325 1 TAB TABLET PO PRN ×2 (00:15→07:44)
[2017-06-11 03:00] VITALS: BP 117/65
[2017-06-11 07:00] VITALS: BP 142/67
[2017-06-11] MEDS: DOCUSATE SODIUM 100 MG CAPSULE. PO SCH (09:05)
[2017-06-11] MEDS: POLYETHYLENE GLYCOL 3350 17 GM PACKET. PO SCH (09:05)
[2017-06-11] MEDS: methylPREDNISolone 4 MG TABLET. PO SCH (09:09)
[2017-06-11 11:00] VITALS: BP 107/60
[2017-06-11 11:49] VITALS: BP 107/60
[2017-06-11] MEDS: METOPROLOL TART IMMED RELEASE 25 MG TABLET. PO SCH ×2 (11:49)
--- NOTE | 2017-06-11 13:14 | PDOC ---
PROGRESS NOTES Chief Complaint Chief Complaint Acute on chronic radicular back pain intractable pain. increased disc bulging at L2-3 on the left with lateral recess narrowing DISC extrusion L2L3 moderately severe degenerative scoliosis History of Present Illness History of Present Illness back pain better while lying down, doing PT Chief Complaint Acute on chronic radicular back pain intractable pain. increased disc bulging at L2-3 on the left with lateral recess narrowing moderately severe degenerative scoliosis History of Present Illness History of Present Illness back pain better while lying down, THINKS HE CAN GO HOME TODAY IF PT GOES WELL Vitals Vitals Vital Signs Date Time Temp Pulse Resp B/P (MAP) Pulse Ox O2 Delivery O2 Flow Rate FiO2 06/09/17 14:51 97.9 66 18 123/68 (86) 93 Room Air 97.9 Physical Exam General: Alert Heart: Normal S1 Lungs: Clear, Abdomen: Normal bowel sounds Extremities: No cyanosis, No edema Skin: No rashes, No breakdown Labs Vitals Vitals Vital Signs Date Time Temp Pulse Resp B/P (MAP) Pulse Ox O2 Delivery O2 Flow Rate FiO2 06/11/17 11:49 48 107/60 06/11/17 11:00 97.7 18 95 Room Air 97.7 Physical Exam Physical Exam General: Alert Heart: Normal S1 Lungs: Clear, Abdomen: Normal bowel sounds Extremities: No cyanosis, No edema Skin: No rashes, No breakdown REFLEXES PATELLAR DEC Labs General: Alert Heart: Normal S1 Lungs: Clear, Wheezing Abdomen: Normal bowel sounds Extremities: No cyanosis, No edema Skin: No rashes, No breakdown Comment Review of Relevant I have reviewed the following items geoffrey (where applicable) has been applied. Medications Current Medications Ketorolac Tromethamine (Toradol) 30 mg 1X ONCE IV Last administered on 18:10; Start 06/08/17 at 17:45; Stop 06/08/17 at 17:46; Status DC Dexamethasone Sodium Phosphate (Decadron) 10 mg 1X ONCE IV Last administered on 06/08/17 18:08; Start 06/08/17 at 17:45; Stop 06/08/17 at 17:46; Status DC Morphine Sulfate 5 mg 1X ONCE IV Last administered on 06/08/17 18:11; Start 06/08/17 at 17:45; Stop 06/08/17 at 17:46; Status DC Diazepam (Valium) 5 mg 1X ONCE PO Last administered on 06/08/17 18:11; Start 06/08/17 at 17:45; Stop 06/08/17 at 17:46; Status DC Ondansetron HCl (Zofran) 4 mg PRN Q8HRS PRN IV NAUSEA/VOMITING; Start at 18:15; Stop 06/09/17 at 18:14; Status DC Morphine Sulfate 4 mg PRN Q2HR PRN IV PAIN Last administered on 06/09/17 03: 21; Start 06/08/17 at 18:15; Stop 06/09/17 at 18:14; Status DC Diazepam (Valium) 5 mg PRN TID PRN PO spasms; Start 06/08/17 at 18:15 Dexamethasone Sodium Phosphate (Decadron) 10 mg BID IV ; Start 06/08/17 at 21: 00; Stop 06/08/17 at 21:56; Status DC Influenza Virus Vaccine Quadrival (Fluarix Quad [id number] Syringe) 0.5 ml ONCE ONCE VAX IM Last administered on 06/09/17 13:13; Start 06/09/17 at 09:00; Stop 06/09/17 at 09:01; Status DC Dexamethasone Sodium Phosphate (Decadron) 10 mg BID IV ; Start 06/08/17 at 21: 56; Status Cancel Dexamethasone Sodium Phosphate (Decadron) 10 mg BID IV Last administered on 13:10; Start 06/08/17 at 22:00; Stop 06/09/17 at 14:58; Status DC Lorazepam (Ativan) 1 mg 1X ONCE IV Last administered on 06/09/17 09:07; Start 06/09/17 at 09:00; Stop 06/09/17 at 09:01; Status DC Lorazepam (Ativan) 1 mg 1X ONCE IV ; Start 06/09/17 at 10:00; Stop 06/09/17 at 10:01; Status DC Methylprednisolone (Medrol) 4 mg BID PO Last administered on 06/11/17 09:09; Start 06/09/17 at 21:00 Oxycodone/ Acetaminophen (Percocet 5/325) 1 tab PRN Q4HRS PRN PO PAIN Last administered on 06/11/17 07:44; Start 06/09/17 at 15:00 Ketorolac Tromethamine (Toradol) 15 mg PRN Q6HRS PRN IV PAIN; Start 06/09/17 at 15:00; Stop 06/14/17 at 14:59 Polyethylene Glycol (miraLAX PACKET) 17 gm DAILY PO Last administered on 09:05; Start 06/09/17 at 15:30 Docusate Sodium (Colace) 100 mg DAILY PO Last administered on 06/11/17 09:05 ; Start 06/09/17 at 15:30 Metoprolol Tartrate (Lopressor) 25 mg BID PO ; Start 06/09/17 at 21:00; Stop 06/09/17 at 21:00; Status DC Flecainide Acetate (Tambocor) 100 mg Q12HR PO ; Start 06/09/17 at 21:00; Stop 06/09/17 at 21:00; Status DC Metoprolol Tartrate (Lopressor) 25 mg BID@0000,1200 PO Last administered on 23:32; Start 06/10/17 at 00:00 Flecainide Acetate (Tambocor) 100 mg BID@0000,1200 PO Last administered on 11:49; Start 06/10/17 at 00:00 Active Scripts Active Reported Flecainide Acetate 100 Mg Tablet 1 Tab PO BID Metoprolol Tartrate 25 Mg Tablet 1 Tab PO BID Lisinopril 20 Mg Tablet 1 Tab PO DAILY Vitals/I & O Vital Sign - Last 24 Hours 06/10/17 06/10/17 06/10/17 06/10/17 14:44 15:11 19:00 20:08 Temp 97.8 98.6 97.8 98.6 Pulse 68 63 Resp 18 18 18 B/P (MAP) 121/60 (80) 118/68 (85) Pulse Ox 94 96 O2 Delivery Room Air Room Air 06/10/17 06/10/17 06/11/17 06/11/17 20:13 23:30 00:00 00:14 Temp 98.6 98.6 Pulse 58 58 58 Resp 16 B/P (MAP) 125/75 (92) 125/75 125/75 Pulse Ox 94 O2 Delivery Room Air Room Air 06/11/17 06/11/17 06/11/17/13/17 00:15 01:38 03:00 07:00 Temp 98.0 97.7 98.0 97.7 Pulse 51 53 Resp 18 18 B/P (MAP) 117/65 (82) 142/67 (92) Pulse Ox 95 95 O2 Delivery Room Air Room Air Room Air 06/11/17 06/11/17 06/11/17 06/11/17 07:44 08:00 08:44 11:00 Temp 97.7 97.7 Pulse 48 Resp 18 18 18 B/P (MAP) 107/60 (76) Pulse Ox 95 O2 Delivery Room Air Room Air Room Air 06/11/17 06/11/17 11:49 11:49 Pulse 48 48 B/P (MAP) 107/60 107/60 Intake and Output 06/10/17 06/10/17 06/11/17 15:00 23:00 07:00 Intake Total 600 ml 1100 ml 500 ml Balance 600 ml 1100 ml 500 ml ROBERTO CORNELL MD Jun 11, 2017 13:14
--- NOTE | 2017-06-11 13:18 | PDOC3 ---
Discharge Summary Date of Admission: Jun 08, 2017 Date of Discharge: Jun 11, 2017 Follow-Up: 3-5 days Admitting Diagnosis comment: INTRACTABLE BACK PAIN L2L3 Extruded disc Problems: (1) Hypertension (2) Paresthesia (3) Intractable low back pain FINAL DIAGNOSIS Acute on chronic radicular back pain intractable pain. increased disc bulging at L2-3 on the left with lateral recess narrowing DISC extrusion L2L3 moderately severe degenerative scoliosis History of Present Illness History of Present Illness back pain better while lying down, doing PT Chief Complaint Acute on chronic radicular back pain intractable pain. increased disc bulging at L2-3 on the left with lateral recess narrowing moderately severe degenerative scoliosis DISCHARGE DIAGNOSIS intractable low back pain, GAIT INSTABILITY DISC EXTRUSION AT L2L3 Brief Hospital Course Mr. Mckay is a 61 old [sex] who presented with [ ] CONDITION AT DISCHARGE: Stable Discharge Medications Current Medications Ketorolac Tromethamine (Toradol) 30 mg 1X ONCE IV Last administered on 18:10; Start 06/08/17 at 17:45; Stop 06/08/17 at 17:46; Status DC Dexamethasone Sodium Phosphate (Decadron) 10 mg 1X ONCE IV Last administered on 06/08/17 18:08; Start 06/08/17 at 17:45; Stop 06/08/17 at 17:46; Status DC Morphine Sulfate 5 mg 1X ONCE IV Last administered on 06/08/17 18:11; Start 06/08/17 at 17:45; Stop 06/08/17 at 17:46; Status DC Diazepam (Valium) 5 mg 1X ONCE PO Last administered on 06/08/17 18:11; Start 06/08/17 at 17:45; Stop 06/08/17 at 17:46; Status DC Ondansetron HCl (Zofran) 4 mg PRN Q8HRS PRN IV NAUSEA/VOMITING; Start at 18:15; Stop 06/09/17 at 18:14; Status DC Morphine Sulfate 4 mg PRN Q2HR PRN IV PAIN Last administered on 06/09/17 03: 21; Start 06/08/17 at 18:15; Stop 06/09/17 at 18:14; Status DC Diazepam (Valium) 5 mg PRN TID PRN PO spasms; Start 06/08/17 at 18:15 Dexamethasone Sodium Phosphate (Decadron) 10 mg BID IV ; Start 06/08/17 at 21: 00; Stop 06/08/17 at 21:56; Status DC Influenza Virus Vaccine Quadrival (Fluarix Quad [id number] Syringe) 0.5 ml ONCE ONCE VAX IM Last administered on 06/09/17 13:13; Start 06/09/17 at 09:00; Stop 06/09/17 at 09:01; Status DC Dexamethasone Sodium Phosphate (Decadron) 10 mg BID IV ; Start 06/08/17 at 21: 56; Status Cancel Dexamethasone Sodium Phosphate (Decadron) 10 mg BID IV Last administered on 13:10; Start 06/08/17 at 22:00; Stop 06/09/17 at 14:58; Status DC Lorazepam (Ativan) 1 mg 1X ONCE IV Last administered on 06/09/17 09:07; Start 06/09/17 at 09:00; Stop 06/09/17 at 09:01; Status DC Lorazepam (Ativan) 1 mg 1X ONCE IV ; Start 06/09/17 at 10:00; Stop 06/09/17 at 10:01; Status DC Methylprednisolone (Medrol) 4 mg BID PO Last administered on 06/11/17 09:09; Start 06/09/17 at 21:00 Oxycodone/ Acetaminophen (Percocet 5/325) 1 tab PRN Q4HRS PRN PO PAIN Last administered on 06/11/17 07:44; Start 06/09/17 at 15:00 Ketorolac Tromethamine (Toradol) 15 mg PRN Q6HRS PRN IV PAIN; Start 06/09/17 at 15:00; Stop 06/14/17 at 14:59 Polyethylene Glycol (miraLAX PACKET) 17 gm DAILY PO Last administered on 09:05; Start 06/09/17 at 15:30 Docusate Sodium (Colace) 100 mg DAILY PO Last administered on 06/11/17 09:05 ; Start 06/09/17 at 15:30 Metoprolol Tartrate (Lopressor) 25 mg BID PO ; Start 06/09/17 at 21:00; Stop 06/09/17 at 21:00; Status DC Flecainide Acetate (Tambocor) 100 mg Q12HR PO ; Start 06/09/17 at 21:00; Stop 06/09/17 at 21:00; Status DC Metoprolol Tartrate (Lopressor) 25 mg BID@0000,1200 PO Last administered on 23:32; Start 06/10/17 at 00:00 Flecainide Acetate (Tambocor) 100 mg BID@0000,1200 PO Last administered on 11:49; Start 06/10/17 at 00:00 Active Scripts Active Reported Flecainide Acetate 100 Mg Tablet 1 Tab PO BID Metoprolol Tartrate 25 Mg Tablet 1 Tab PO BID Lisinopril 20 Mg Tablet 1 Tab PO DAILY Vital Signs Vital Signs Date Time Temp Pulse Resp B/P (MAP) Pulse Ox O2 Delivery O2 Flow Rate FiO2 06/11/17 11:49 48 107/60 06/11/17 11:00 97.7 18 95 Room Air 97.7 Allergies Allergies Coded Allergies Type Severity Reaction Last Updated Verified No Known Drug Allergies 08/23/14 No Disposition/Orders: D/C to Home Patient Instructions see pcp in 3-4 days off work until released by PCP NO DRIVING CONTINUE PT OUTPATIENT ROBERTO CORNELL MD Jun 11, 2017 13:18
--- NOTE | 2017-06-11 13:22 | DISCH ---
DISCHARGE INSTRUCTIONS Condition on Discharge Condition on Discharge: Stable Activity After Discharge Activity Instructions for Disc: Activity as tolerated Lifting Instructions after Dis: No pulling or pushing, Do not lift >10 pounds Exercise Instruction after Dis: Walk 10 min, 3 x per day Driving Instructions after Dis: No driving for 2 weeks Weight Bearing Status after Di: Full weight bearing, As tolerated Diet after Discharge Diet after Discharge: Cardiac Wound Incision Care Wound/Incision Care: Ice to area for comfort Checks after Discharge Checks after discharge: Check blood press - daily Contacting the DR. after DC Call your doctor for: If your condition worsens Treatment/Equipment after DC Comment: D/C PLANNING 35 MIN ROBERTO CORNELL MD Jun 11, 2017 13:22
[2017-06-11] MEDS ORDERED: METH4TAB7 PO (13:59)
[2017-06-11] MEDS ORDERED: DIAZ5TAB4 PO (14:03)
[2017-06-11] MEDS ORDERED: OXYC-323 PO (14:04)
== END 2017-06-11 15:15 | disposition home or self-care (01) | DRG 552 ==
LOC: ER 16:51 → 5 SOUTH 17:45
PROVIDERS: ADMIT Internal Medicine; ATTEND Internal Medicine
DX: M41.86 Other forms of scoliosis, lumbar region (principal); G89.29 Other chronic pain; M48.061 Spinal stenosis, lumbar region without neurogenic claudication; M51.36 Other intervertebral disc degeneration, lumbar region; I10 Essential (primary) hypertension; R20.2 Paresthesia of skin; M54.5 Low back pain; Z83.3 Family history of diabetes mellitus
CPT/HCPCS: 36415; 72100; 72148; 80048; 85007; 85025; 85610; 85730; 90686; 96374; 96375; 99406; J1100; J1885; J2060; J2270; J7509; 97116; 97530; 99285-25